=== PATIENT | female | born 1970 | race Caucasian/White ===

== ENCOUNTER 2016-12-18 14:30 | Emergency (ER) | payer OTHER ==
[~2016-12-18] VITALS: Ht 172.7 cm; Wt 56.8 kg
[~2016-12-18 14:30] MED LIST: CALC1TAB98 PO; DIVA500T7 PO; DOCU-144 PO; HYDR4TAB18 PO; HYOS0.1212 SL; KEN1O TOP; LACT10SO5 PO; LORA-444 PO; METH500T8 PO; METO10TA92 PO; ONDA4TAB8 PO; PANT40TA3 PO; PHEN100C PO; PHEN60TA9 PO; ZOF8 PO
[2016-12-18] MEDS ORDERED: LORAZEPAM 2 MG INJ IV STA (14:36)
[2016-12-18] MEDS ORDERED: SOD CHLORIDE 0.9% 1,000 ML IV STA (14:36)
[2016-12-18 14:45] VITALS: Ht 172.7 cm; Wt 56.8 kg
[2016-12-18 15:28] LABS: BASOPHILS % 0.3 % (0.0-2.0); EOSINOPHILS % 0.5 % (0.0-7.0); HEMOGLOBIN 13.2 g/dl (12.0-16.0); LYMPHOCYTES # 1.7 10^3/ul (0.8-2.9); LYMPHOCYTES % 30.3 % (15.0-51.0); MEAN CORPUSCULAR HEMOGLOBIN 30.5 pg (29.0-33.0); MEAN CORPUSCULAR HGB CONC 33.8 g/dl (32.0-37.0); MEAN CORPUSCULAR VOLUME 90.2 fl (82.0-101.0); MEAN PLATELET VOLUME 6.6 fl (7.4-10.4); MONOCYTE # 0.5 10^3/ul (0.3-0.9); MONOCYTES % 8.7 % (0.0-11.0); NEUTROPHIL # 3.3 10^3/ul (1.6-7.5); NEUTROPHILS % 60.2 % (39.0-77.0); PLATELET COUNT 192 10^3/UL (140-440); RED BLOOD COUNT 4.33 10^6/ul (4.20-5.40); RED CELL DISTRIBUTION WIDTH 13.3 % (11.5-14.5); UNCORRECTED WBC 5.5 10^3/ul (4.8-10.8); WHITE BLOOD COUNT 5.5 10^3/ul (4.8-10.8)
[2016-12-18 15:29] VITALS: BP 134/73; PULSE 84; RESP 14; TEMP 98.1
[2016-12-18 15:29] LABS: CONDITION 1
[2016-12-18 15:38] LABS: POTASSIUM 3.3 mmol/L (3.5-5.1)
[2016-12-18 15:41] LABS: CREATININE 0.49 mg/dl (0.44-1.00)
[2016-12-18 15:42] LABS: CALCIUM 8.7 mg/dl (8.4-10.2)
--- NOTE | 2016-12-18 19:06 | ERD ---
ER Documentation Chief Complaint Date/Time DATE: 12/18/16 TIME: 19:02 Chief Complaint seizures HPI Patient is a 46-year-old female with seizures, arthritis, paraplegia, and chronic pain who presents with a seizure. The patient says that she had a seizure today and that it was her "third one today". She says that she is having difficulty swallowing and cannot take her medicines. She says that she has "pain all over". She is requesting narcotic pain medicine. Upon review of old medical records the patient has multiple visits to the ER for pain type complaints. Review of the emergency department information exchange shows visits to 5 different emergency departments and she does have a care recommendation which recommends caution when using narcotic medicine given pain seeking behavior. ROS All systems reviewed and are negative except as per history of present illness. Medications Home Meds Active Scripts Metoclopramide* (Reglan*) 10 Mg Tablet, 10 MG PO Q6H Y for NAUSEA AND OR VOMITING, #30 TAB Prov:LUIZ SMITH MD 04/17/16 Pantoprazole* (Protonix*) 40 Mg Tablet., 40 MG PO DAILY, #60 TAB Prov:LUIZ SMITH MD 04/17/16 Ondansetron Hcl* (Zofran*) 4 Mg Tablet, 4 MG PO Q8H Y for NAUSEA AND/OR VOMITING , #21 TAB Prov:CLAUDE ÁLVAREZ DO 03/22/16 Reported Medications Hyoscyamine Sulfate* (Hyoscyamine Sulfate*) 0.125 Mg Tab.subl, 0.25 MG SL TID, TAB 12/03/14 Lactulose* (Lactulose*) 10 Gm/15 Ml Solution, 10 GM PO DAILY, ML 11/21/14 Docusate Sodium* (Colace*) 100 Mg Capsule, 100 MG PO BID Y for CONSTIPATION, CAP 11/08/14 Methocarbamol* (Methocarbamol*) 500 Mg Tablet, 500-1000 MG PO QID, TAB 10/07/14 Calcium Carbonate-Vitamin D3 (Calcium + D 600 Tablet) 1 Tab Tablet, 1 TAB PO BID , TAB 09/10/14 Divalproex Sodium* (Depakote*) 500 Mg Tablet.dr, 1000 MG PO BID, TAB 09/10/14 Phenobarbital* (Phenobarbital*) 60 Mg Tablet, 60 MG PO BID, TAB 09/10/14 Phenytoin* Sodium Extended (Dilantin*) 100 Mg Capsule, 200 MG PO BID, CAP 09/10/14 Ondansetron Hcl* (Zofran*) 8 Mg Tab, 4-8 MG PO Q8 Y for NAUSEA AND OR VOMITING, TAB 09/10/14 Hydromorphone Hcl* (Dilaudid*) 4 Mg Tablet, 4-8 MG PO Q4-6 HOURS Y for PAIN, TAB 09/10/14 Triamcinolone Acetonide* (Kenalog*) 0.1%-15GM Oint, 1 APPLIC TOP BID, EA 08/27/14 Lorazepam* (Ativan*) 2 Mg Tablet, 2 MG PO TID Y for ANXIETY 03/01/14 Allergies Allergies: Coded Allergies: tramadol (Verified Allergy, Severe, ANAPHALACTIC, 12/03/14) Penicillins (Verified Allergy, Mild, RASH, 12/03/14) ibuprofen (Verified Allergy, Mild, 12/03/14) ketorolac (Verified Allergy, Mild, 12/03/14) NSAIDS (Non-Steroidal Anti-Inflamma (Unverified Allergy, Unknown, 12/03/14) RE-ENTERED UNCODED ALLERGY CODED codeine (Verified Allergy, Unknown, RASH, 12/03/14) fentanyl (Verified Allergy, Unknown, 12/03/14) morphine (Verified Allergy, Unknown, 12/03/14) PMhx/Soc History of Surgery: Yes (when she was young , brain cancer) Anesthesia Reaction: No Hx Neurological Disorder: Yes Hx Respiratory Disorders: No Hx Cardiac Disorders: No Hx Psychiatric Problems: No Hx Alcohol Use: No Hx Substance Use: No Hx Tobacco Use: Yes (cigarette 1/2 pack a day) Smoking Status: Current every day smoker FmHx Patient is adopted and does not know family history Physical Exam Vitals Vital Signs Date Time Temp Pulse Resp B/P Pulse Ox O2 Delivery O2 Flow Rate FiO2 12/18/16 15:29 98.1 84 14 134/73 96 Room Air 12/18/16 14:45 98.1 85 12 128/78 96 Physical Exam Const: Chronically ill Head: Atraumatic Eyes: Normal Conjunctiva ENT: Normal External Ears, Nose and Mouth. Neck: Full range of motion..~ No meningismus. Resp: Clear to auscultation bilaterally Cardio: Regular rate and rhythm, no murmurs Abd: Soft, non tender, non distended. Normal bowel sounds Skin: Pale Back: No midline or flank tenderness Ext: No cyanosis, or edema Neur: Awake and alert, no seizure activity at this time, patient has lower extremity paralysis chronically Result Diagram: 12/18/16 1505 12/18/16 1505 Results 24 hrs Laboratory Tests Test 12/18/16 15:05 Anion Gap 16 Basophils # 0.010^3/ul Basophils % 0.3% Blood Morphology Comment Blood Urea Nitrogen 11mg/dl Calcium Level 8.7mg/dl Carbon Dioxide Level 28mmol/L Chloride Level 101mmol/L Creatinine 0.49mg/dl Eosinophils # 0.010^3/ul Eosinophils % 0.5% Glucose Level 93mg/dl Hematocrit 39.0% Hemoglobin 13.2g/dl Lymphocytes # 1.710^3/ul Lymphocytes % 30.3% Mean Corpuscular Hemoglobin 30.5pg Mean Corpuscular Hemoglobin Concent 33.8g/dl Mean Corpuscular Volume 90.2fl Mean Platelet Volume 6.6fl Monocytes # 0.510^3/ul Monocytes % 8.7% Neutrophils # 3.310^3/ul Neutrophils % 60.2% Nucleated Red Blood Cells # 0.010^3/ul Nucleated Red Blood Cells % 0.0/100WBC Phenytoin (Dilantin) Level 5.4ug/ml Platelet Count 41545^3/UL Potassium Level 3.3mmol/L Red Blood Count 4.3310^6/ul Red Cell Distribution Width 13.3% Sodium Level 142mmol/L Valproic Acid (Depakene) Level 28ug/ml White Blood Count 5.510^3/ul Current Medications Medications (Trade) Dose Ordered Sig/Giancarlo Route PRN Reason Start Time Stop Time Status Last Admin Dose Admin Sodium Chloride (NS) 1,000 ml @ 1,000 mls/hr Q1H STAT IV 12/18/16 14:36 12/18/16 15:33 DC 12/18/16 14:52 Lorazepam (Ativan) 1 mg ONCE STAT IV 12/18/16 14:36 12/18/16 14:37 DC 12/18/16 14:53 Procedures/MDM Smoking Cessation Therapy: Pt. was lectured for greater than 3 minutes on the health risks of continued smoking and the benefits of cessation. Patient is a 46-year-old female who presents with seizures and pain. I wanted to check her laboratory studies as well as give her Ativan for seizure. However her bigger concern is getting her pain medicine. I told her I would give her anything nonnarcotic but she says that she has allergies to NSAIDs, ibuprofen, Toradol, morphine, codeine, and tramadol. Because of her emergency department information exchange information I believe there may be pain seeking behavior and I will not give her narcotics while in the emergency department. When I told her I would not give her narcotics she wanted to leave AGAINST MEDICAL ADVICE and said that she would go elsewhere. She has acute on chronic seizures. She can return for any worsening symptoms. Laboratory studies did return once she had already left and she had mild hypokalemia. Her Dilantin and valproic acid levels were low as well. She needs to take her medicines as directed. Departure Diagnosis: Primary Impression: Seizure disorder Additional Impression: Chronic pain Chronic pain type: chronic pain syndrome Qualified Code: G89.4 - Chronic pain syndrome Condition: Fair Patient Instructions: Chronic Pain, Seizure, Recurrent [Adult] Referrals: [facility] (PCP) Additional Instructions: FOLLOW UP WITH YOUR PRIMARY CARE PHYSICIAN TOMORROW.Return to this facility if you are not improving as expected. IMAN LEE MD Dec 18, 2016 19:06
== END 2016-12-18 15:33 | disposition left against medical advice (07) ==
LOC: E/R 14:30
DX: G40.909 Epilepsy, unspecified, not intractable, without status epilepticus (principal); G89.4 Chronic pain syndrome; F17.210 Nicotine dependence, cigarettes, uncomplicated
CPT/HCPCS: 80048; 80164; 80185; 85025; 96374; J2060; J7030; Z7502